=== PATIENT | male | born 1960 | race African-American/Black ===

== ENCOUNTER → 2018-02-17 | Outpatient (CLI) | payer OTHER ==
--- NOTE | 2018-02-17 09:40 | Magnetic Resonance Report ---
MR CERVICAL SPINE WITHOUT CONTRAST HISTORY: Radiculopathy. TECHNIQUE: Axial T2 and T2 gradient. Sagittal T1, T2 and STIR. COMPARISON: None. FINDINGS: The cervical spinal cord is normal size and signal intensity throughout. No abnormal intramedullary signal is detected. Normal height and alignment of the cervical vertebral bodies. Normal bone marrow signal. There is mild diffuse disc desiccation but no significant disc space narrowing. The facet joints are in appropriate relationship. No significant joint pathology or hypertrophic changes. The paraspinal soft tissues are within normal limits. C2-3: Mild uncovertebral spurring. No stenosis. C3-4: Mild to moderate uncovertebral spurring, right greater than left. Right neural foraminal narrowing is estimated at 50%. C4-5: A focal midline disc protrusion is identified which abuts the anterior surface of the spinal cord but does not displace it. The protrusion measures 6 mm transverse and 3 mm AP. No central canal stenosis or significant neural foraminal narrowing. C5-6: No significant abnormality. C6-7: No significant abnormality. C7-T1: No significant abnormality. IMPRESSION: Mild disc desiccation is identified at all levels. Mild bilateral uncovertebral spurring is identified at C2-3 and C3-4. A small to medium sized central disc protrusion is identified at C4-5 as described above.
== END | disposition home or self-care (01) ==
LOC: MRI 08:01
PROVIDERS: ATTEND Family Medicine
DX: M50.221 Other cervical disc displacement at C4-C5 level (principal); M54.12 Radiculopathy, cervical region; Z88.0 Allergy status to penicillin
CPT/HCPCS: 72141

== ENCOUNTER 2020-09-11 15:03 | Outpatient (CLI) | payer OTHER ==
--- NOTE | 2020-09-11 16:02 | XRay Report ---
XR forearm LT INDICATION: PAINFUL LT FOREARM. COMPARISON: No relevant prior imaging study available. FINDINGS: No acute skeletal abnormality. No significant soft tissue abnormality. IMPRESSION: 1. No acute findings. Signer Name: Alex Gasca MD Signed: 09/11/2020 3:57 PM Workstation Name: [id number]
== END 2020-09-11 15:04 | disposition home or self-care (01) ==
LOC: XRAY 15:03
PROVIDERS: ATTEND Physical Medicine & Rehabilitation Pain Medicine
DX: M79.632 Pain in left forearm (principal)